=== PATIENT | male | born 2000 | race Caucasian/White ===

== ENCOUNTER 2024-01-02 17:32 | Emergency (ER) | payer OTHER, SELFPAY ==
[2024-01-02 17:36] VITALS: BP 138/89
--- NOTE | 2024-01-02 18:31 | ED.GENMED ---
History of Present Illness
General
Chief Complaint: Fever
Source: patient
Exam Limitations: none
Time Seen by Provider: 01/02/24 18:17
Travel History
Have you had any contact with someone who has COVID-19?: No
Do you have any symptoms of coronavirus? Fever > 100 degrees, chills, cough, shortness of breath, sore throat, loss of taste or smell, muscle aches, or headache?: Yes
Symptoms:: fever, cough
History of Present Illness
History of Present Illness:
This is a 23 year old male that comes in with c/o fever. States that this all started 2 weeks ago when he had an abscess tooth. States that he had a fever of 102 for the past 6 days. Sates that he has not been able to get OOB. States that he is
vomiting, has a cough and his nose is bleeding when he vomits. States that he did go to the dentist and he went to [facility] on . States that he was started on Amoxicillin on Thursday and then switched to Augmentin. States that he
couldn't take the Augmentin as this made his vomiting and stomach pain worse. States that he switched back to just the Amoxicillin. States that he had the root canal started and the abscess was drained. States that he has fever with chills, SOB,
nausea, vomiting, diarrhea, headache and he feels like the room is spinning. Denies any chest pain, abd pain, urinary burning.
Past History
Past History
ED Past Medical History: Other (Orbital fractures as child)
ED Past Surgical History: Appendectomy
Social History
Tobacco: Non-smoker
Alcohol: Occasional
Drug: Marijuana
Personal: Single
Living: with family
Review of Systems
Review of Systems
All Other Systems: ROS reviewed and negative except as documented in HPI and ROS
Constitutional: Reports fever and chills
EENT: Reports other (Had a right upper gum dental abscess that was drained on )
Respiratory: Reports cough and trouble breathing
Cardiac: Reports no symptoms; Denies chest pain
ABD/GI: Reports nausea, vomiting and diarrhea; Denies abdominal pain
: Reports no symptoms; Denies dysuria, frequency or urgency
Musculoskeletal: Reports no symptoms
Skin: Reports no symptoms
Neurological: Reports dizzy and headache
Psychiatric: Reports no symptoms
Phy Exam
General Physical Exam
General Presentation: no apparent distress
General age: appears stated age
General Skin: warm and dry
General Habitus: normal
General Mental: alert
General Hydration: appears well hydrated
ENT Exam
ENT Exam: TM's normal, neck supple and pharyngeal erythema (with exudate)
Eye Exam
Eye Exam: EOMI
Cardiovascular Exam
Cardiovascular Exam: regular rate/rhythm, no edema, no murmur and normal peripheral pulses
Pulmonary Exam
Pulmonary Exam: lungs clear, no respiratory distress, no rales, chest non tender, no crackles, no rhonchi and no wheezing
Gastrointestinal Exam
Gastrointestinal Exam: normal bowel sounds, non tender, soft, no organomegaly, no pulsatile mass and non distended
Musculoskeletal Exam
Musculoskeletal Exam: full ROM and no edema
Skin Exam
Skin Exam: normal color, warm/dry, no rash and no petechia
Psychiatric Exam
Psychiatric Exam: normal mood/affect
Course
Orders/Labs/Results
Orders:
Orders
01/02/24 18:29
0.9% Sodium Chloride 1000 ml [Nss] 1,000 ml IV BOLUS
01/02/24 18:30
CR Chest - 2 Views Urgent
Comment:
Reason For Exam: fever. cough
01/02/24 18:31
Acetaminophen 1000MG/100Ml [Ofirmev] 1,000 mg in 100 ml IV ONCE
Acetaminophen IV Indication:: ED Narcotic Naive Pt-ONCE
Ketorolac [Toradol] 30 mg IV NOW STA
Ondansetron Injectable [Zofran] 4 mg IV NOW STA
01/02/24 18:35
Pantoprazole [Protonix IV] 40 mg IV NOW STA
01/02/24 19:06
COVID-19 Antigen Urgent
Source: Nasal Swab
Complete Blood Count/With Diff Urgent
Lactic Acid Urgent
Monotest Urgent
Blood Culture Q30M
JARVIS Source: Blood/Venous
Specimen Description:
Blood Culture Q30M
JARVIS Source: Blood/Venous
Specimen Description:
Influenza A+B Rapid Molecular Urgent
JARVIS Source: Nasal Swab
Specimen Description:
01/02/24 19:08
Comprehensive Metabolic Panel Urgent
01/02/24 19:11
Rapid Strep Group A Urgent
JARVIS Source: Throat/Pharynx
Specimen Description:
Date Specimen was Collected: 01/02/24
Time Specimen was Collected: 19:11
01/02/24 20:55
Urinalysis Reflex To Culture Urgent
Date Specimen was Collected: 01/02/24
Time Specimen was Collected: 19:11
01/02/24 21:15
0.9% Sodium Chloride 500 ml [Nss] 500 ml IV BOLUS
Abnormal Lab Results
01/02/24 01/02/24
19:06 20:55
RBC 4.49 L 10^6/uL
(4.70-6.10)
Hct 37.6 L %
(39.0-52.0)
Absolute Neuts (auto) 8.1 H 10^3/uL
(1.4-6.5)
Absolute Lymphs (auto) 0.8 L 10^3/uL
(1.2-3.4)
Absolute Monos (auto) 1.0 H 10^3/uL
(0.1-0.6)
Neutrophils % 81.1 H %
(42.2-75.2)
Lymphocytes % 8.1 L %
(20.5-51.1)
Monocytes % 10.2 H %
(1.7-9.3)
Urine Ketones 2+ A
(Negative)
Urine Bilirubin 1+ A
(Negative)
01/02/24 19:06
01/02/24 19:08
Labs unremarkable. mono negative. Lactic acid normal at 1.3, Rapid step negative (patient is already taking amoxicillin), Negative for influenza and COVID. Urine is negative for infection.
Vital Signs
Initial and Last Documented VS:
Initial Vital Signs
Temp Pulse Resp BP
102.8 F H 109 18 138/89
01/02/24 17:36 01/02/24 17:36 01/02/24 17:36 01/02/24 17:36
Last Documented Vital Signs
Temp Pulse Resp BP Pulse Ox
99.4 F 91 32 110/55 95
01/02/24 21:19 01/02/24 21:15 01/02/24 21:15 01/02/24 20:00 01/02/24 21:15
MDM/Problems Addressed
Differential Diagnosis Includes:
COVID, Influenza, [place], sepsis
MDM/Problems Addressed:
This is a 23 year old male that comes in with c/o fever for the past 6 days. States that he had a dental abscess that the root canal was started and the abscess was drained on . Patient has been on Antibiotics since Thursday. States that he
is nauseated, vomiting and has diarrhea. States that he is dizzy with a headache.
Will check labs. blood culture, Give IV fluids, Chest x-ray, Urine, COVID, Influenza, Strep and medicate for his fever.
Back into see patient and mom Explained that his blood work is normal, He is negative for COVID, Influenza, [place] and his Rapid strep is negative. Urine is negative for infection and his chest x-ray is normal. This is most likely a viral illness.
Patient to increase his water intake to 8-8oz glasses daily. Tylenol or Ibuprofen for fever and body aches. Follow up with the PCP for recheck. Explained that if his blood cultures would come back positive for infection he would be called and asked
to return. Patient to return with any other concerns.
Chronic conditions affecting care:
NA
Acute Exacerbation and/or Progression of Chronic Illness:
NA
*Radiology
Radiology exam reviewed: preliminary read by ED provider (Chest negative for active disease) and radiology read reviewed (Chest-No radiographic evidence for pneumonia or other acute cardiopulmonary disease. )
*EKG
Interpreted by ED Provider?: NA
Rate: EKG- N/A
*Coatings Inspector Interpretation
Rate: Coatings Inspector- N/A
*Critical Care Note
Total Time (30-74mins, 75-104mins- exclusive of procedures): Not Applicable
ED Attending Note
-
Portions of this chart may have been created with voice recognition software.� Occasional wrong word or��sound alike� substitutions may have occurred due to the inherent limitations of voice recognition software.
Discharge Plan
Departure
Patient Disposition: Home (Routine Discharge)
Date of Disposition: 01/02/24
Time of Disposition: 21:37
Patient with high blood pressure during this ER visit?: No
Condition: Good
Covid-19: Negative COVID-19
Discharge Problem:
Viral syndrome
Instructions: Fever, Adult (DC), Viral Syndrome (DC)
Prescriptions:
No Action
acetaminophen-codeine 1 TABLET tablet
1 tab PO Q4HPRN PRN (Reason: pain) Qty: 20 0RF
pantoprazole 40 MG tablet,delayed release (DR/EC)
40 mg PO DAILY Qty: 30 0RF
ondansetron 4 MG tablet,disintegrating
4 mg PO TIDPRN PRN (Reason: nausea) Qty: 12 0RF
sucralfate 1 GRAM tablet
1 g PO QID Qty: 60 0RF
Referrals:
Mock,Chepe, MD [Family Provider] - Follow up in 2-3 days
Activity Restrictions/Additional Instructions:
As discussed, your blood work is normal. You are negative for COVID, Influenza, [place] and the rapid strep. You may continue with the Amoxicillin that you are taking for your tooth. Please increase your water intake to 8-8oz glasses daily. Tylenol or
Ibuprofen for fever and body aches. Follow up with the family doctor for recheck. IF YOU HAVE ANY OTHER CONCERNS PLEASE RETURN TO THE EMERGENCY ROOM.
Interventions
Interventions:
*Risk Screen - Suicide Last Done: 01/02/24 17:36
*General Assessment Last Done: 01/02/24 17:36
ED- Neurological Assessment Last Done: 01/02/24 19:31
ED-Skin Assessment Last Done: 01/02/24 19:31
Discharge Date and Time
Print Language: EMIRATI
[2024-01-02 19:06] VITALS: BP 117/57
[2024-01-02] MEDS: OFIRMEV 100 IV (19:17)
[2024-01-02] MEDS: NSS 1000 IV (19:19)
[2024-01-02] MEDS: TORADOL 30 MG IV (19:20)
[2024-01-02] MEDS: ZOFRAN 4 MG IV (19:21)
[2024-01-02 19:23] LABS: % Basophils 0.2 % (0-2); % Immature Granulocytes 0.4 % (0-0.5); % Lymphocytes 8.1 % (20.5-51.1); % Monocytes 10.2 % (1.7-9.3); % Neutrophils 81.1 % (42.2-75.2); Absolute Lymphocytes 0.8 10^3/uL (1.2-3.4); Absolute Neutrophils 8.1 10^3/uL (1.4-6.5); Hematocrit 37.6 % (39.0-52.0); Hemoglobin 13.7 g/dL (13.0-18.0); Mean Corp Hgb Conc. 36.4 g/dL (33.0-37.0); Mean Corpuscular Hgb 30.5 pg (27.0-31.0); Mean Corpuscular Volume 83.7 fL (80.0-94.0); Mean Platelet Volume 9.2 fL (7.4-10.4); Nucleated Red Blood Cells % 0 % (-); Platelet Count 193 10^3/uL (130-400); Red Blood Cell Count 4.49 10^6/uL (4.70-6.10); Red Cell Dist. Width 11.6 % (11.5-14.5)
[2024-01-02 19:27] LABS: Lactic Acid 1.3 mmol/L (0.7-2.0)
[2024-01-02 19:36] LABS: ALT (SGPT) 17 U/L (0-50); AST (SGOT) 31 U/L (17-59); Albumin 4.1 g/dl (3.5-5.0); Alkaline Phosphatase 106 U/L (38-126); Blood Urea Nitrogen 12 mg/dl (9-20); Calcium 9.1 mg/dl (8.4-10.2); Carbon Dioxide 23 mmol/L (22-30); Chloride 100 mmol/L (98-107); Glucose 99 mg/dl (70-99); Potassium 3.6 mmol/L (3.5-5.1); Sodium 135 mmol/L (135-145); Total Bilirubin 0.4 mg/dl (0.2-1.3); Total Protein 6.9 g/dl (6.3-8.2); eGFR > 60.00
[2024-01-02 19:43] LABS: Monotest Negative (Negative)
[2024-01-02 19:52] LABS: COVID-19 Antigen Negative (Negative)
[2024-01-02 20:00] VITALS: BP 110/55
[2024-01-02] MEDS: PROTONIX IV 40 MG IV (20:06)
[2024-01-02] MEDS: NSS 500 IV (21:16)
[2024-01-02 21:20] LABS: Urine Albumin Trace (Neg - Trace); Urine Bilirubin 1+ (Negative); Urine Character Clear (Clear); Urine Color Yellow; Urine Glucose Negative (Negative); Urine Ketone 2+ (Negative); Urine Leukocyte Negative (Negative); Urine Nitrite Negative (Negative); Urine Occult Blood Negative (Negative); Urine Specific Gravity 1.015 (<1.030); Urine Urobilinogen Negative (Neg - 1+)
[2024-01-02 21:43] VITALS: BP 113/50
== END 2024-01-02 22:04 | disposition home or self-care (01) ==
LOC: EMR 17:32
PROVIDERS: Clinical Nurse Specialist Family Health; EMERGENCY PHYSICIAN Student in an Organized Health Care Education/Training Program; FAMILY PHYSICIAN Family Medicine
DX: B34.9 Viral infection, unspecified (principal); R11.2 Nausea with vomiting, unspecified; R19.7 Diarrhea, unspecified; R42 Dizziness and giddiness; R51.9 Headache, unspecified; R05.9 Cough, unspecified; Z11.52 Encounter for screening for COVID-19; Z98.890 Other specified postprocedural states
CPT/HCPCS: 99284; 96374; 96375 ×3; 96361 ×2; 71046; 80053; 81003; 83605; 85025; 86308; 87040; 87070; 87502; 87811; 87880